=== PATIENT | male | born 1995 | race Caucasian/White ===

== ENCOUNTER 2018-11-11 19:43 | Emergency (ER) | payer SELFPAY ==
[2018-11-11 20:19] VITALS: PULSE 74
[2018-11-11] MEDS ORDERED: Amoxicillin/Clavulanate K 875-125 MG Tab PO ONE (20:33)
--- NOTE | 2018-11-11 20:39 | EDM.PDOC ---
ED HPI GENERAL MEDICAL PROBLEM - General Chief Complaint: General Stated Complaint: LEFT SIDE FACE SWOLLEN Time Seen by Provider: 11/11/18 20:20 Source of Information: Reports: Patient History Limitations: Reports: No Limitations - History of Present Illness INITIAL COMMENTS - FREE TEXT/NARRATIVE: Alert 23 yo male present to ER with left facial swelling. Patient noted slight swelling over the course of the last 1-2 days. Patient has been taking Aspirin without improvement of symptoms. Patient denies fever but is always warm. He denies chills, sweats nausea or vomiting. Patient has a multiple year history of broke teeth at gumline in all 4 quadrants of the mouth. Patient asks if eating a large amount of seafood could have caused symptoms. Patient denies history of similar infection in the past. Patient called a dentist and has an appointment for evaluation in 3 weeks and possible intervention in 3 months. Left Jaw Pain Score (Numeric/FACES): 3 - Related Data Allergies Allergy/AdvReac Type Severity Reaction Status Date / Time No Known Allergies Allergy Verified 09/22/14 22:06 Home Meds: Home Meds Amoxicillin/Potassium Clav [Augmentin 875-125 Tablet] 1 each PO BID 10 Days #20 tablet 11/11/18 [Rx] Chlorhexidine Gluconate 0.12% [Peridex 0.12% Rinse] 480 ml MM TID 10 Days #480 ml 11/11/18 [Rx] Naproxen [Naprosyn] 500 mg PO Q12H PRN 10 Days #20 tablet 11/11/18 [Rx] Past Medical History - Past Health History Medical/Surgical History: Denies Medical/Surgical History Musculoskeletal History: Reports: Fracture - Past Surgical History Other Musculoskeletal Surgeries/Procedures:: right ankle surgery 09-21-2014 Dr Guidry in [place] Social & Family History - Family History Family Medical History: Noncontributory - Tobacco Use Smoking Status *Q: Current Every Day Smoker Years of Tobacco use: 7 Packs/Tins Daily: 1 - Caffeine Use Caffeine Use: Reports: Coffee, Energy Drinks, Soda Caffeine Use Comment: 1 cup of coffee per day, 1 energy drink per day, 1 pop per day - Alcohol Use Days Per Week of Alcohol Use: 1 Number of Drinks Per Day: 2 Total Drinks Per Week: 2 - Recreational Drug Use Recreational Drug Use: Yes Recreational Drug Type: Reports: Marijuana/Hashish Recreational Drug Use Frequency: Monthly ED ROS GENERAL - Review of Systems Review Of Systems: ROS reveals no pertinent complaints other than HPI. ED EXAM, GENERAL - Physical Exam Exam: See Below Exam Limited By: No Limitations General Appearance: Alert, WD/WN, Mild Distress Eye Exam: Bilateral Eye: EOMI, PERRL Ears: Normal External Exam, Normal Canal, Hearing Grossly Normal, Normal TMs Nose: Normal Inspection, Normal Mucosa Throat/Mouth: Normal Inspection, Normal Lips, Normal Gums, Normal Oropharynx, Normal Voice, No Airway Compromise. No: Normal Teeth (one or more chipped molar noted in all 4 quadrants. Increase swelling and pain along the left upper gumline. ) Head: Normocephalic, Other (left facial swelling noted per patient, minimal asymmetry noted on examination) Neck: Normal Inspection, Supple, Non-Tender, Full Range of Motion Respiratory/Chest: No Respiratory Distress, Lungs Clear, Normal Breath Sounds, No Accessory Muscle Use Cardiovascular: Normal Peripheral Pulses, Regular Rate, Rhythm Neurological: Alert, Oriented, CN II-XII Intact, Normal Cognition, Normal Gait, No Motor/Sensory Deficits Psychiatric: Normal Affect, Normal Mood Skin Exam: Warm, Dry, Intact, Normal Color, No Rash Course - Vital Signs Last Recorded V/S: Last Vital Signs Temp 37.3 C 11/11/18 20:17 Pulse 74 11/11/18 20:17 Resp 16 11/11/18 20:17 BP 172/102 H 11/11/18 20:17 Pulse Ox 97 11/11/18 20:17 Departure - Departure Time of Disposition: 20:45 Disposition: Home, Self-Care 01 Clinical Impression: Dental abscess, Chipped tooth - Discharge Information Prescriptions: Amoxicillin/Potassium Clav [Augmentin 875-125 Tablet] 1 each PO BID 10 Days #20 tablet Chlorhexidine Gluconate 0.12% [Peridex 0.12% Rinse] 480 ml MM TID 10 Days #480 ml Naproxen [Naprosyn] 500 mg PO Q12H PRN 10 Days #20 tablet PRN Reason: Pain Instructions: Dental Abscess, Tooth Injuries, Dental Extraction, Preventive Dental Care, Adult Referrals: PCP,None [Primary Care Provider] - Additional Instructions: 1. Augmentin 875mg every am and pm with food x 10 days for dental infection with possible sinusitis involvement. 2. Naproxen 500mg or 440 (OTC ALEVE) every 8-12 hours as needed for inflammation, swelling and pain. 3. Aspirin and Tylenol will not likely be helpful. 4. Peridex mouth wash TID-BID to help decreased bacteria in mouth 5. Warm compress to help increased blood flow while taking antibiotic. 6. Call Local Dentist for evaluation in 1-2 weeks. 7. Return to ER not improving in 48-72 hours sooner if significant worsening infection concerning including swelling, fever 102, nausea, unable to take medications or swelling around eye, double vision or pain with movement of the eye. - Problem List & Annotations (1) Chipped tooth SNOMED Code(s): 72812101 Code(s): S02.5XXA - FRACTURE OF TOOTH (TRAUMATIC), INIT FOR CLOS FX Status : Acute Current Visit: Yes (2) Dental abscess SNOMED Code(s): 384472883 Code(s): K04.7 - PERIAPICAL ABSCESS WITHOUT SINUS Status: Acute Current Visit: Yes
[2018-11-11 20:44] VITALS: BP 143/88
[2018-11-11] MEDS ORDERED: Naproxen 250 MG Tab PO ONE (20:45)
== END 2018-11-11 20:58 | disposition home or self-care (01) ==
LOC: JP.ED 19:43
DX: K04.7 Periapical abscess without sinus (principal); K03.81 Cracked tooth; F17.210 Nicotine dependence, cigarettes, uncomplicated
CPT/HCPCS: 99283; A9270

== ENCOUNTER 2022-07-28 09:19 | Emergency (ER) | payer OTHER ==
[2022-07-28 09:35] VITALS: BP 138/91; PULSE 82
== END 2022-07-28 10:47 | disposition home or self-care (01) ==
LOC: JP.ED 09:19
DX: S00.83XA Contusion of other part of head, initial encounter (principal); J32.4 Chronic pansinusitis; V47.5XXA Car driver injured in collision with fixed or stationary object in traffic accident, initial encounter; Y92.410 Unspecified street and highway as the place of occurrence of the external cause
CPT/HCPCS: 70486; 70486-26; 99284

== ENCOUNTER 2024-09-08 09:00 | Emergency (ER) | payer SELFPAY ==
[2024-09-08 09:15] VITALS: BP 146/95; PULSE 71
[2024-09-08] MEDS: Bacitracin Oint 1 GM U/D Packet TOP ONE (11:05)
[2024-09-08] MEDS: Diphtheria,Pertussis(Acell),Tetanus Vaccine 0.5 ML Syringe IM ONE (11:06)
== END 2024-09-08 11:13 | disposition home or self-care (01) ==
LOC: JP.ED 09:00
DX: S61.213A Laceration without foreign body of left middle finger without damage to nail, initial encounter (principal); Z86.16 Personal history of COVID-19; Z23 Encounter for immunization; Z79.899 Other long term (current) drug therapy; W26.8XXA Contact with other sharp object(s), not elsewhere classified, initial encounter
CPT/HCPCS: 12002; 90471; 90715; 99282; J2003